=== PATIENT | female | born 1935 | race Caucasian/White ===

== ENCOUNTER → 2020-10-18 | Day surgery (SDC) | payer OTHER ==
[~2020-10-18] VITALS: Ht 160 cm; Wt 59.0 kg
[~2020-10-18] MED LIST: ALLERGY RELIEF10 M1 PO; AMLODIPINE BESYL5 MG PO; ATENOLOL50 MG PO; B COMPLEX1 EACH PO; CHLORTHALIDONE25 MG PO; CO Q-1010 MG PO; D3-200050 MCG PO; DOCUSATE SODIU100 MG PO; FERREX 150150 MG PO; FLAXSEED1000 MG PO; FLONASE 0.05% N16 GM; HYDROCODON-ACE1 EAC4 PO; IBUPROFEN800 MG PO; LISINOPRIL40 MG PO; NIACIN500 M1 PO; NIRAPARIB PO; NP THYROID60 MG PO; OMEPRAZOLE40 MG PO; PRIMIDONE50 MG PO; PROCHLORPERAZINE5 MG PO; VITAMIN E100 UNI1 PO; ZOFRAN4 MG PO; [UNRECOGNIZED DRUG - OTHER] MC; [UNRECOGNIZED DRUG - OTHER] PO
[2020-10-18 07:23] LABS: HEMOGLOBIN 9.4 gm/dl (12.3-15.3); RED BLOOD COUNT 3.07 M/UL (4.00-5.10); WHITE BLOOD COUNT 6.1 K/UL (4.5-11.0)
== END | disposition home or self-care (01) ==
LOC: OR 06:40
PROVIDERS: Orthopaedic Surgery
PROC: 0PSH04Z Reposition Right Radius with Internal Fixation Device, Open Approach (ICD-10-PCS; principal; 2020-10-18 09:15)
DX: S52.571A Other intraarticular fracture of lower end of right radius, initial encounter for closed fracture (principal); S52.611A Displaced fracture of right ulna styloid process, initial encounter for closed fracture; I10 Essential (primary) hypertension; E78.5 Hyperlipidemia, unspecified; K21.9 Gastro-esophageal reflux disease without esophagitis; Z79.899 Other long term (current) drug therapy; Z88.0 Allergy status to penicillin; W01.0XXA Fall on same level from slipping, tripping and stumbling without subsequent striking against object, initial encounter; Y92.481 Parking lot as the place of occurrence of the external cause
CPT/HCPCS: 71045; 73110; 76000; 80048; 85027; 93005; C1713; J2001; J2405; J2704; J3010; J7120